=== PATIENT | male | born 1950 | race Caucasian/White ===

== ENCOUNTER 2017-05-19 10:52 | Inpatient (IN) | payer OTHER ==
[~2017-05-19] VITALS: Ht 180.3 cm; Wt 74.8 kg
[2017-05-19 10:58] VITALS: BP_SYST 140
[2017-05-19 12:04] LABS: BASOPHILS # (AUTO) 0.5 K/uL (0.0-0.2); BASOPHILS % (AUTO) 4.2 % (0.0-2.0); EOSINOPHILS # (AUTO) 0.1 K/uL (0.0-0.4); EOSINOPHILS % (AUTO) 0.7 % (0.0-4.0); HEMATOCRIT 44.6 % (36-54); HEMOGLOBIN 14.6 g/dL (14.0-18.0); LYMPHOCYTES # (AUTO) 1.3 K/uL (1.0-5.5); LYMPHOCYTES % (AUTO) 10.8 % (20.5-51.5); MEAN CORPUSCULAR HEMOGLOBIN 29 pg (27-31); MEAN CORPUSCULAR HGB CONC 33 % (32-36); MEAN CORPUSCULAR VOLUME 90 fL (79.0-98.0); MONOCYTES # (AUTO) 0.4 K/uL (0.0-1.0); MONOCYTES % (AUTO) 3.3 % (1.7-9.3); PLATELET COUNT (AUTO) 284 K/uL (130-430); RED BLOOD CELL COUNT(AUTO) 4.96 MIL/uL (4.2-6.2); RED CELL DISTRIBUTION WIDTH 12.4 % (9.0-15.0); WHITE BLOOD COUNT (AUTO) 12.3 K/uL (4.8-10.8)
[2017-05-19 12:07] LABS: CALCIUM 9.3 mg/dL (8.4-11.0); CREATININE 1.28 mg/dL (0.55-1.30); POTASSIUM 4.5 mmol/L (3.5-5.1)
[2017-05-19 12:28] LABS: TOTAL BILIRUBIN 0.3 mg/dL (0.0-1.0)
[2017-05-19] MEDS ORDERED: ASPIRIN 81 MG TABLET(ECOTRIN) PO ONE (13:00)
[2017-05-19] MEDS ORDERED: ASPIRIN 81 MG TAB.CHEW ONE (13:05)
[2017-05-19] MEDS ORDERED: ENOXAPARIN SODIUM 80 MG/0.8 ML SYRINGE SUBCUT ONE (15:00)
[2017-05-19 15:16] VITALS: BP_SYST 153
[2017-05-19 16:30] VITALS: BP_SYST 138
[2017-05-19] MEDS ORDERED: *LOVENOX 1MG/KG Q12H/PHARMACY XX ONE (17:45)
[2017-05-19] MEDS: METOPROLOL TARTRATE 25 MG TABLET PO SCH ×2 (17:45→20:29)
[2017-05-19] MEDS ORDERED: ENOXAPARIN SODIUM 80 MG/0.8 ML SYRINGE SUBCUT SCH (18:00)
[2017-05-19 18:16] LABS: CHOLESTEROL 212 mg/dL (<200); HDL CHOLESTEROL 45 mg/dL (>45); LDL CHOLESTEROL 147 mg/dL (<100); TRIGLYCERIDES 109 mg/dL (30-150)
[2017-05-19 20:00] VITALS: BP_SYST 130
[2017-05-20 00:23] VITALS: BP_SYST 105
[2017-05-20 05:49] VITALS: BP_SYST 95
[2017-05-20 06:18] LABS: BASOPHILS # (AUTO) 0.1 K/uL (0.0-0.2); BASOPHILS % (AUTO) 0.5 % (0.0-2.0); EOSINOPHILS # (AUTO) 0.4 K/uL (0.0-0.4); EOSINOPHILS % (AUTO) 3.2 % (0.0-4.0); HEMATOCRIT 41.3 % (36-54); HEMOGLOBIN 14.2 g/dL (14.0-18.0); LYMPHOCYTES # (AUTO) 2.1 K/uL (1.0-5.5); LYMPHOCYTES % (AUTO) 18.2 % (20.5-51.5); MEAN CORPUSCULAR HEMOGLOBIN 31 pg (27-31); MEAN CORPUSCULAR HGB CONC 34 % (32-36); MEAN CORPUSCULAR VOLUME 89 fL (79.0-98.0); MONOCYTES # (AUTO) 0.8 K/uL (0.0-1.0); MONOCYTES % (AUTO) 6.6 % (1.7-9.3); NEUTROPHILS # (AUTO) 8.3 K/uL (1.8-7.7); NEUTROPHILS % (AUTO) 71.5 % (40.0-70.0); PLATELET COUNT (AUTO) 241 K/uL (130-430); RED BLOOD CELL COUNT(AUTO) 4.64 MIL/uL (4.2-6.2); RED CELL DISTRIBUTION WIDTH 12.4 % (9.0-15.0); WHITE BLOOD COUNT (AUTO) 11.7 K/uL (4.8-10.8)
[2017-05-20 06:48] LABS: ALBUMIN 3.6 g/dL (3.4-4.8); CALCIUM 8.9 mg/dL (8.4-11.0); CREATININE 1.13 mg/dL (0.55-1.30); POTASSIUM 4.1 mmol/L (3.5-5.1); TOTAL BILIRUBIN 0.6 mg/dL (0.0-1.0)
[2017-05-20 08:00] VITALS: BP_SYST 100
[2017-05-20] MEDS ORDERED: MORPHINE 4 MG/ML INJ. SYRINGE IVP PRN (08:00)
[2017-05-20] MEDS ORDERED: ONDANSETRON HCL 4 MG/2 ML VIAL IVP PRN (08:00)
[2017-05-20] MEDS ORDERED: MORPHINE 2 MG/ML INJ. SYRINGE IVP PRN (08:00)
[2017-05-20] MEDS: METOPROLOL TARTRATE 25 MG TABLET PO SCH (09:00)
[2017-05-20] MEDS ORDERED: ASPIRIN 81 MG TAB.CHEW PO SCH (09:00)
[2017-05-20] MEDS: ATORVASTATIN 20 MG TABLET PO SCH ×2 (09:34→09:46)
[2017-05-20 12:03] VITALS: BP_SYST 100
[2017-05-20 13:57] VITALS: BP_SYST 100
[2017-05-20 16:10] VITALS: BP_SYST 127
== END 2017-05-20 15:00 | disposition short-term general hospital (02) | DRG 282 ==
LOC: SED 10:52 → STU 14:52
PROVIDERS: ADMIT Internal Medicine Hospice and Palliative Medicine; ATTEND Internal Medicine Hospice and Palliative Medicine
DX: I21.4 Non-ST elevation (NSTEMI) myocardial infarction (principal); E78.00 Pure hypercholesterolemia, unspecified; Z85.828 Personal history of other malignant neoplasm of skin; E78.5 Hyperlipidemia, unspecified
CPT/HCPCS: 36415; 71010; 80053; 80061; 83880; 84484; 85025; 93005; 93306; 99285; J1650